=== PATIENT | male | born 1970 | race Caucasian/White ===

== ENCOUNTER 2024-08-11 11:01 | Inpatient (IN) | payer OTHER ==
[~2024-08-11] VITALS: Ht 172.7 cm; Wt 81.8 kg
[2024-08-11] MEDS: ACETAMINOPHEN 325MG TABLET PO ONE (12:01)
[2024-08-11 12:05] LABS: BASOPHILS % 0.5 % (0.0-2.0); EOSINOPHILS % 0.9 % (0.0-5.0); HEMATOCRIT. 44.6 % (42.0-52.0); LYMPHOCYTES % 17.3 % (20.0-50.0); MEAN CORPUSCULAR HEMOGLOBIN 30.9 pg (28.0-32.0); MEAN CORPUSCULAR HGB CONC 33.5 g/dL (31.0-37.0); MEAN CORPUSCULAR VOLUME 92.1 fL (80.0-94.0); MEAN PLATELET VOLUME 7.8 fl (7.4-10.4); MONOCYTES % 4.6 % (2.0-8.0); NEUTROPHILS % 76.7 % (40.0-76.0); PLATELET 351 x1000/uL (130-400); RED BLOOD CELL COUNT 4.84 mill/uL (4.7-6.1); RED CELL DISTRIBUTION WIDTH 14.1 % (11.6-14.6); WHITE BLOOD COUNT 9.1 x1000/uL (4.5-11.0)
[2024-08-11 12:18] LABS: CHLORIDE 108 mEq/L (98-107); POTASSIUM 6.1 mEq/L (3.5-5.1); SODIUM 140 mEq/L (136-145)
[2024-08-11 12:19] LABS: CALCIUM 9.5 mg/dL (8.7-10.4); CARBON DIOXIDE 25 mEq/L (21-32)
[2024-08-11 12:24] LABS: GLUCOSE 130 mg/dL (70-105); UREA NITROGEN BLOOD 19 mg/dL (9-23)
[2024-08-11 12:26] LABS: ALANINE AMINOTRANSFERASE 30 IU/L (10-49); ALBUMIN 4.3 g/dL (3.2-4.8); ASPARTATE AMINOTRANSFERASE 66 IU/L (<34); PROTEIN TOTAL 7.1 g/dL (6.0-8.3)
[2024-08-11 12:27] LABS: BILIRUBIN TOTAL 1.3 mg/dL (0.1-1.0)
[2024-08-11] MEDS ORDERED: TETANUS, DIPHTHERIA, PERTUSSIS VAC/PF 0.5ML (>10YR OLD) IM ONE (12:30)
[2024-08-11 13:08] LABS: CHLORIDE 111 mEq/L (98-107); POTASSIUM 3.5 mEq/L (3.5-5.1); SODIUM 143 mEq/L (136-145)
[2024-08-11 13:09] LABS: CALCIUM 9.5 mg/dL (8.7-10.4); CARBON DIOXIDE 26 mEq/L (21-32)
[2024-08-11 13:14] LABS: CREATININE 0.9 mg/dL (0.6-1.3); GLUCOSE 129 mg/dL (70-105); UREA NITROGEN BLOOD 18 mg/dL (9-23)
[2024-08-11] MEDS ORDERED: CLONIDINE 0.1MG TABLET PO PRN (16:00)
[2024-08-11] MEDS ORDERED: ONDANSETRON HCL 4MG/2ML INJ IV PRN (16:00)
[2024-08-11] MEDS: SODIUM CHLORIDE 0.9% 1,000 ML IV SCH (16:33)
[2024-08-11] MEDS: TETANUS, DIPHTHERIA, PERTUSSIS VAC/PF 0.5ML (>10YR OLD) IM ONE (17:04)
[2024-08-11] MEDS ORDERED: HYDRALAZINE 20MG/ML VIAL IV PRN (18:00)
[2024-08-11 19:14] LABS: PARTIAL THROMBOPLASTIN TIME < 21.0 sec (23.4-31.0); PROTHROMBIN TIME 11.3 sec (9.6-11.0)
[2024-08-11] MEDS ORDERED: ZOLPIDEM TARTRATE 5MG TABLET PO PRN (20:00)
[2024-08-11 22:00] VITALS: BP 124/79; PULSE 67; PULSE 71; RESP 15; TEMP 36.78072; TEMP 36.8072; O2SAT 97
[2024-08-12] VITALS (10 sets, daily range): BP systolic 113–143; BP diastolic 72–92; PULSE 55–77; RESP 9–20; TEMP 36.114–36.83628; O2SAT 98–100
[2024-08-12 00:44] LABS: CREATINE KINASE 642 IU/L (46-171)
[2024-08-12 00:52] LABS: TROPONIN I HIGH SENSITIVITY < 4 ng/L (3.0-53)
[2024-08-12] MEDS: ACETAMINOPHEN 325MG TABLET PO PRN (00:56)
[2024-08-12 01:42] LABS: *AMPHETAMINES SCREEN URINE NEGATIVE (NEGATIVE); *BARBITURATES SCREEN URINE NEGATIVE (NEGATIVE); *BENZODIAZEPINES SCREEN URINE NEGATIVE (NEGATIVE); *COCAINE SCREEN URINE NEGATIVE (NEGATIVE); CANNABINOID URINE SCREEN NEGATIVE (NEGATIVE); ECSTASY MDMA SCREEN URINE NEGATIVE (NEGATIVE); METHADONE URINE SCREEN NEGATIVE (NEGATIVE); OPIATES URINE SCREEN NEGATIVE (NEGATIVE); PHENCYCLIDINE URINE SCREEN NEGATIVE (NEGATIVE)
[2024-08-12 05:58] LABS: BASOPHILS % 0.4 % (0.0-2.0); EOSINOPHILS % 0.7 % (0.0-5.0); HEMATOCRIT. 43.3 % (42.0-52.0); HEMOGLOBIN. 14.1 g/dL (14.0-18.0); LYMPHOCYTES % 21.6 % (20.0-50.0); MEAN CORPUSCULAR HEMOGLOBIN 30.2 pg (28.0-32.0); MEAN CORPUSCULAR HGB CONC 32.7 g/dL (31.0-37.0); MEAN CORPUSCULAR VOLUME 92.4 fL (80.0-94.0); MEAN PLATELET VOLUME 7.1 fl (7.4-10.4); MONOCYTES % 6.8 % (2.0-8.0); NEUTROPHILS % 70.5 % (40.0-76.0); PLATELET 324 x1000/uL (130-400); RED BLOOD CELL COUNT 4.68 mill/uL (4.7-6.1); RED CELL DISTRIBUTION WIDTH 14.3 % (11.6-14.6); WHITE BLOOD COUNT 10.9 x1000/uL (4.5-11.0)
[2024-08-12 06:03] LABS: CARBON DIOXIDE 27 mEq/L (21-32); CHLORIDE 112 mEq/L (98-107); SODIUM 145 mEq/L (136-145)
[2024-08-12 06:04] LABS: CALCIUM 9.3 mg/dL (8.7-10.4)
[2024-08-12 06:08] LABS: CREATINE KINASE MB FRACTION 7.7 ng/mL (0.5-3.6)
[2024-08-12 06:09] LABS: CREATININE 0.8 mg/dL (0.6-1.3); GLUCOSE 91 mg/dL (70-105); UREA NITROGEN BLOOD 14 mg/dL (9-23)
[2024-08-12 06:10] LABS: CREATINE KINASE 547 IU/L (46-171)
[2024-08-12 06:13] LABS: TROPONIN I HIGH SENSITIVITY < 4 ng/L (3.0-53)
== END 2024-08-12 17:30 | disposition home or self-care (01) | DRG 552 ==
LOC: ER 11:01 → EDBEDREQ 12:53 → EDBEDREQTM 12:53 → EDBEDREQSVC 12:59 → 5EST 21:00
PROVIDERS: ADMIT Internal Medicine; ATTEND Internal Medicine
DX: M48.02 Spinal stenosis, cervical region (principal); S09.90XA Unspecified injury of head, initial encounter; E87.5 Hyperkalemia; W01.0XXA Fall on same level from slipping, tripping and stumbling without subsequent striking against object, initial encounter; Y93.89 Activity, other specified; Y92.89 Other specified places as the place of occurrence of the external cause; Y99.8 Other external cause status
CPT/HCPCS: 36415; 70486; 72141; 80048; 80053; 80305; 82550; 82553; 84484; 85025; 90715; 93005; 93970; 99291